=== PATIENT | male | born 1990 | race Caucasian/White ===

== ENCOUNTER 2021-08-19 17:23 | Emergency (ER) | payer OTHER, SELFPAY ==
--- NOTE | ~2021-08-19 | CT_ITS ---
EXAMINATION: CT lumbar spine wo con DATE: 08/19/2021 18:15 INDICATION: Low back pain TECHNIQUE: Computed tomography (CT) of the lumbar spine was performed without intravenous contrast. T he dose-length product (DLP) was 1304.38 mGy-cm. Iterative reconstruction was used. COMPARISON: None FINDINGS: There are 2 mm of degenerative retrolisthesis of L5 on S1. Bone alignment is otherwise norm al. There is no fracture. There is mild loss of intervertebral disc space height at L5-S1 with a smal l posterior central disc bulge. The prevertebral soft tissues are normal. IMPRESSION: 1. Mild lumbar spondylosis without acute findings. Reviewed, dictated and finalized at location F.
[2021-08-19 17:39] VITALS: BP 151/93; PULSE 74; RESP 16; TEMP 37; O2SAT 97
--- NOTE | 2021-08-19 18:05 | ED.BACK ---
HPI - Back Pain/Injury General Chief Complaint: Back Pain/Injury Stated Complaint: fall Time Seen by Provider: 08/19/21 17:49 Source: patient Mode of arrival: ambulatory History of Present Illness HPI Narrative: 31-year-old male presents today with complaints of lower back pain that started after a fall today. Patient states he was walking down brick concrete stairs when one of the brakes went out from under him he went backwards protected his head and hit the concrete. Patient states bystanders did not witness fall but heard the fall. They said the fall was very loud and they thought he had hit his head. Patient denies head pain and denies possibility of hitting head. Patient with complaints of severe lower back pain radiating down left leg. Patient on scene when unable to stand without assistance. Patient denies urinary incontinence, bowel incontinence saddle paresthesia, or leg weakness. Does state sharp pain upon standing and putting too much weight on left leg. Related Data Allergies Allergy/AdvReac Type Severity Reaction Status Date / Time Penicillins Allergy Rash Verified 08/19/21 18:26 Review of Systems Review of Systems: CONSTITUTIONAL: Denies fever, chills, or sweats. EYES: Denies visual changes, redness, or discharge. ENT: Denies rhinorrhea, congestion, sore throat, or otalgia. CARDIOVASCULAR: Denies chest pain, palpitations, or edema. RESPIRATORY: Denies cough or dyspnea. GASTROINTESTINAL: Denies abdominal pain, nausea, vomiting, or diarrhea. GENITOURINARY: Denies dysuria or hematuria. SKIN: Denies rash or itching. MUSCULOSKELETAL: Lower back pain radiating down left leg. Patient states when weight put on left leg sharp pain radiates down and is unable to stand. Denies joint pain, or myalgia. NEUROLOGIC: Denies headache, numbness, dizziness, or weakness. PSYCHIATRIC: Denies anxiety or depression. Exam Narrative: GENERAL: Well-appearing, well-nourished, and in no acute distress. HEAD: Normocephalic, atraumatic. EYES: PERRLA and EOMI. ENT: Nares clear, no rhinorrhea or epistaxis. Mucous membranes moist. Oropharynx without tonsillar hypertrophy exudate or other lesions. Bilateral TMs pearly [place] nonbulging NECK: Supple. No adenopathy or masses. No carotid bruits or JVD CHEST: Clear to auscultation. No respiratory distress. No wheezes rales or rhonchi HEART: Regular rate and rhythm. No murmur heard. Normal peripheral pulses. ABDOMEN: Soft, nontender, nondistended, normal active bowel sounds. EXTREMITIES: Normal range of motion. No edema. SKIN: Warm, dry, no rash. NEURO: Straight leg positive on right and left. Point tenderness to lumbar spine. No muscle spasms noted. No focal deficits. Alert and oriented x3. PSYCH: Normal mood and affect. Course Course Emergency Course: Results discussed with patient. Patient noted much improvement after medication. Patient states he is ready to be discharged. Vital Signs Vital signs: Vital Signs Temperature 37.0 C 08/19/21 17:39 Pulse Rate 74 08/19/21 17:39 Respiratory Rate 16 08/19/21 17:39 Blood Pressure 151/93 H 08/19/21 17:39 Pulse Oximetry 97 08/19/21 17:39 Temperature 37.0 C 08/19/21 17:39 Pulse Rate 74 08/19/21 17:39 Respiratory Rate 16 08/19/21 17:39 Blood Pressure 151/93 H 08/19/21 17:39 Pulse Oximetry 97 08/19/21 17:39 MDM - Back Pain/Injury MDM Narrative Medical decision making narrative: Patient with HPI as noted. No signs of cauda equina per history and on exam. Patient with trauma and ground-level fall. Point tenderness noted to lumbar spine. CT with no acute findings. Patient with improvement after medication. Will discharge home. Differential Diagnosis Differential diagnosis: Likely lumbar radiculopathy, sciatica, strain of lumbar region and other (Low back pain) Imaging Data Radiologist's impression: Impressions Lumbar Spine CT 08/19/21 18:34 IMPRESSION: 1. Mild lumbar spondylosis without acute findin
[2021-08-19] MEDS: KETOROLAC 30 MG/ML VIAL (*BKC) IM (18:28)
[2021-08-19] MEDS: ORPHENADRINE CITRATE 100 MG TABLET.ER PO (18:28)
== END 2021-08-19 19:01 | disposition home or self-care (01) ==
PROVIDERS: Emergency Provider Nurse Practitioner Family
DX: S39.012A Strain of muscle, fascia and tendon of lower back, initial encounter (principal); M54.42 Lumbago with sciatica, left side; M47.816 Spondylosis without myelopathy or radiculopathy, lumbar region; W10.9XXA Fall (on) (from) unspecified stairs and steps, initial encounter
CPT/HCPCS: 72131; 96372; 99284; A9270; J1885

== ENCOUNTER 2023-08-29 12:48 | Outpatient (CLI) | payer OTHER, SELFPAY | END 2023-08-29 12:49 | disposition home or self-care (01) | LOC: ANHBWCAUD 12:49 | PROVIDERS: Visit Provider Family Medicine | DX: H90.A12 Conductive hearing loss, unilateral, left ear with restricted hearing on the contralateral side (principal); H65.23 Chronic serous otitis media, bilateral; H93.13 Tinnitus, bilateral; H61.22 Impacted cerumen, left ear; E66.01 Morbid (severe) obesity due to excess calories; I10 Essential (primary) hypertension; H80.92 Unspecified otosclerosis, left ear; F31.9 Bipolar disorder, unspecified | CPT/HCPCS: 92557; 92567 ==